=== PATIENT | female | born 1965 | race Caucasian/White ===

== ENCOUNTER 2017-03-10 13:51 | Emergency (ER) | payer OTHER, BC ==
[~2017-03-10] VITALS: Ht 157.5 cm; Wt 61.2 kg
== END 2017-03-10 14:30 | disposition home or self-care (01) ==
LOC: ER 13:51
DX: M48.9 Spondylopathy, unspecified (principal); Z47.89 Encounter for other orthopedic aftercare
CPT/HCPCS: 72070; 99282; 99283

== ENCOUNTER → 2021-09-10 | Outpatient (CLI) | payer OTHER, BC | END | disposition home or self-care (01) | LOC: PLD 07:48 → LAB SHORT 07:48 | DX: R89.7 Abnormal histological findings in specimens from other organs, systems and tissues (principal) | CPT/HCPCS: 88108; 88305; 89060 ==